=== PATIENT | female | born 1960 | race Caucasian/White ===

== ENCOUNTER 2022-11-10 06:14 | Emergency (ER) | payer OTHER ==
[~2022-11-10] VITALS: Ht 154.9 cm; Wt 45.8 kg
--- NOTE | 2022-11-10 06:26 | NUR ---
Patient AOx4, able to express her concerns. Patient states she was bit by her dog c/o: face pain, 2 lacerations on chin. Discussed plan of care, patietn verbalized agreement. All safety precautions taken.
--- NOTE | 2022-11-10 06:49 | NUR ---
PT TAKEN TO CT VIA [facility]
--- NOTE | 2022-11-10 06:58 | NUR ---
PT RETURNED FROM CT
[2022-11-10] MEDS ORDERED: AMOX/CLAVULANATE 875 MG TABLET PO ONE (07:00)
[2022-11-10] MEDS ORDERED: HYDROCODONE/APAP 5/325MG TABLET PO ONE ×2 (07:00→08:30)
[2022-11-10] MEDS ORDERED: HYDROCODONE/APAP 5/325MG TABLET ONE ×2 (07:05→08:05)
[2022-11-10] MEDS ORDERED: AMOX/CLAVULANATE 875 MG TABLET ONE (07:06)
[2022-11-10] MEDS ORDERED: LIDOCAINE 1% INJ 50 ML MDV IJ ONE (07:45)
[2022-11-10] MEDS ORDERED: LIDOCAINE 1%-EPI 1:100,000 50 ML VIAL IJ ONE (08:00)
--- NOTE | 2022-11-10 09:11 | NUR ---
MD AT BEDSIDE FOR SUTURES
[2022-11-10] MEDS ORDERED: BACITRACIN ZINC OINT PACKET 1 EA PACKET TP ONE ×2 (09:12→09:30)
[2022-11-10] MEDS ORDERED: IBUP-1957 PO (09:27)
[2022-11-10] MEDS ORDERED: AMOX-430 PO (09:27)
[2022-11-10] MEDS ORDERED: BACITRACIN ZINC OINT (15 GM) 15 GM TUBE TP SCH (09:30)
--- NOTE | 2022-11-10 09:36 | NUR ---
Patient discharged to home in stable condition. Written and verbal after care instructions given. Patient verbalizes understanding of instruction.
[2022-11-10 09:39] VITALS: BP 168/88
== END 2022-11-10 09:39 | disposition home or self-care (01) ==
LOC: ER 06:34
DX: S01.511A Laceration without foreign body of lip, initial encounter (principal); Z79.899 Other long term (current) drug therapy; W54.0XXA Bitten by dog, initial encounter; Y93.89 Activity, other specified; Y92.89 Other specified places as the place of occurrence of the external cause; Y99.8 Other external cause status
CPT/HCPCS: 99284; 70486; 12014; J3490; A6403 ×2

== ENCOUNTER 2024-01-20 21:02 | Emergency (ER) | payer OTHER ==
[~2024-01-20] VITALS: Ht 154.9 cm; Wt 44.5 kg
[~2024-01-20 21:02] MED LIST: AMOX-430 PO; IBUP-1957 PO
[2024-01-20] MEDS ORDERED: KETOROLAC TROMETHAMINE 15 MG/ML VIAL ONE (21:26)
[2024-01-20] MEDS: IV NS 0.9% 1,000 ML BAG IV ONE ×2 (21:30→22:48)
[2024-01-20] MEDS: KETOROLAC TROMETHAMINE 15 MG/ML VIAL IV ONE (21:30)
[2024-01-20 21:37] LABS: BASOPHILS % (AUTO) 0.6 % (0.0-2.0); EOSINOPHILS % (AUTO) 0.1 % (0.0-6.0); HEMATOCRIT 43 % (33-45); LYMPHOCYTES # (AUTO) 0.6 K/uL (0.8-4.8); MEAN CORPUSCULAR HEMOGLOBIN 33 PG (26.0-33.0); MEAN CORPUSCULAR HGB CONC 35 g/dl (31.0-36.0); MEAN CORPUSCULAR VOLUME 95 fL (82-100); MONOCYTES # (AUTO) 0.4 K/uL (0.1-1.30); NEUTROPHILS # (AUTO) 6.9 K/uL (1.8-8.9); NEUTROPHILS % (AUTO) 86.3 % (43.0-81.0); PLATELET COUNT (AUTO) 234 K/uL (150-450); RED BLOOD CELL COUNT(AUTO) 4.58 MIL/uL (4.0-5.2); RED CELL DISTRIBUTION WIDTH 12.2 % (11.5-15.0)
[2024-01-20 21:51] LABS: ALBUMIN 4.6 g/dL (3.4-5.0); BILIRUBIN,DIRECT 0.2 mg/dL (0.0-0.2); BILIRUBIN,TOTAL 0.6 mg/dL (0.2-1.0); CREATININE 0.8 mg/dL (0.6-1.3); POTASSIUM 3.7 mmol/L (3.5-5.1); TOTAL PROTEIN, SERUM 8.7 g/dL (6.4-8.2)
[2024-01-20 21:52] LABS: INR 0.99 (0.91-1.10); PARTIAL THROMBOPLASTIN TIME 24.5 SEC (24.3-34.3); PROTHROMBIN TIME 10.5 SECS (9.2-11.1)
[2024-01-20 21:59] LABS: APPEARANCE,URINE CLEAR (CLEAR); BILIRUBIN,URINE NEGATIVE (NEGATIVE); BLOOD, URINE 1+ Ery/uL (NEGATIVE); COLOR,URINE OTHER (YELLOW); KETONES,URINE 1+ mg/dL (NEGATIVE); LEUKOCYTE ESTERASE ,URINE NEGATIVE (NEGATIVE); NITRITE, URINE NEGATIVE (NEGATIVE); PH,URINE 8.5 (5.0-8.0); PROTEIN,URINE NEGATIVE (NEGATIVE); UGLUCOSE NEGATIVE (NEGATIVE); UROBILINOGEN,URINE 0.2 EU/dL (0.2)
[2024-01-20 22:12] LABS: ADD URINE CULTURE NO; BACTERIA,URINE Few /HPF (None Seen); MUCUS,URINE Few /LPF (None Seen); SQUAMOUS EPITHELIAL CELL,UR 0-2 /HPF (None Seen); WBC,URINE 0-2 /HPF (0-3)
[2024-01-20] MEDS ORDERED: MORPHINE SULFATE INJ 4 MG/ML DISP.SYRIN ONE (22:37)
[2024-01-20] MEDS ORDERED: ONDANSETRON HCL/PF 4 MG/2 ML VIAL ONE (22:37)
[2024-01-20] MEDS ORDERED: PIPERACI/TAZO 3.375GM/D5W 50ML PB IV ONE (22:37)
[2024-01-20] MEDS: ONDANSETRON HCL/PF 4 MG/2 ML VIAL IVP ONE (22:48)
[2024-01-20] MEDS: MORPHINE SULFATE INJ 2 MG/ML DISP.SYRIN IV ONE (22:48)
[2024-01-20] MEDS: PIPERACILLIN /TAZOBACTAM 3.375 G in IV D5W 50 ML IV ONE (22:48)
[2024-01-20] MEDS ORDERED: AMOX-430 PO (23:39)
[2024-01-20] MEDS ORDERED: HYDR-3980 PO (23:39)
[2024-01-20] MEDS ORDERED: ONDA4TAB5 PO (23:39)
[2024-01-21 00:04] VITALS: BP 164/100; TEMP 97.5; O2SAT 99
== END 2024-01-21 00:06 | disposition home or self-care (01) ==
LOC: ER 21:05
DX: K52.9 Noninfective gastroenteritis and colitis, unspecified (principal); N13.30 Unspecified hydronephrosis; R10.32 Left lower quadrant pain; R10.31 Right lower quadrant pain; E03.9 Hypothyroidism, unspecified
CPT/HCPCS: 99285; 74176; 96365; 96375; 96361; 85025; 80048; 83690; 80076; 81001; 36415; 85730; J2270; J2405; J2543 ×2; J7060; J7030; J1885